=== PATIENT | female | born 1995 | race Caucasian/White ===

== ENCOUNTER 2020-11-09 08:07 | Emergency (ER) | payer SELFPAY ==
[~2020-11-09] VITALS: Ht 157.5 cm; Wt 103.0 kg
[2020-11-09] MEDS ORDERED: ACETAMINOPHEN 325MG TABLET PO STA (08:49)
[2020-11-09] MEDS ORDERED: ONDANSETRON HCL 4MG/2ML INJ IV STA (08:49)
[2020-11-09] MEDS ORDERED: SODIUM CHLORIDE 0.9% 1,000 ML IV ONE (09:00)
[2020-11-09 09:25] LABS: BASOPHILS % 1.3 % (0.0-2.0); EOSINOPHILS % 0.2 % (0.0-5.0); HEMATOCRIT. 38.9 % (36.0-48.0); HEMOGLOBIN. 13.4 g/dL (12.0-16.0); LYMPHOCYTES % 19.9 % (20.0-50.0); MEAN CORPUSCULAR HEMOGLOBIN 31.4 pg (28.0-32.0); MEAN CORPUSCULAR VOLUME 91.1 fL (81.0-99.0); MEAN PLATELET VOLUME 9.1 fl (7.4-10.4); MONOCYTES % 6.9 % (2.0-8.0); NEUTROPHILS % 71.7 % (40.0-76.0); PLATELET 258 x1000/uL (130-400); RED BLOOD CELL COUNT 4.27 mill/uL (4.2-5.4); RED CELL DISTRIBUTION WIDTH 12.6 % (11.6-14.6)
[2020-11-09 09:33] LABS: CHLORIDE 107 mEq/L (98-107)
[2020-11-09] MEDS ORDERED: ONDA4TAB5 MT (10:06)
[2020-11-09] MEDS ORDERED: POTASSIUM CHLORIDE 20MEQ TABLET SR PO ONE (10:15)
[2020-11-09 10:34] VITALS: BP 179/114
== END 2020-11-09 11:05 | disposition home or self-care (01) ==
LOC: ER 08:07
DX: R11.2 Nausea with vomiting, unspecified (principal); R19.7 Diarrhea, unspecified; R10.84 Generalized abdominal pain; Z20.822 Contact with and (suspected) exposure to COVID-19; Z98.890 Other specified postprocedural states; Z79.899 Other long term (current) drug therapy
CPT/HCPCS: 36415; 80053; 83690; 85025; 93005; 96361; 96374; 99284; J2405; J7030; Z7610